=== PATIENT | female | born 1980 | race African-American/Black ===

== ENCOUNTER 2019-04-27 15:17 | Emergency (ER) | payer SELFPAY ==
[~2019-04-27] VITALS: Ht 160 cm; Wt 86.0 kg
[2019-04-27 18:23] VITALS: BP 127/85
== END 2019-04-27 18:26 | disposition home or self-care (01) ==
LOC: ER 16:24
DX: M54.9 Dorsalgia, unspecified (principal); Z88.0 Allergy status to penicillin; Z88.8 Allergy status to other drugs, medicaments and biological substances
CPT/HCPCS: 99283